=== PATIENT | male | born 1945 | race Caucasian/White ===

== ENCOUNTER 2016-11-20 15:14 | Inpatient (IN) | payer MEDICARE, MEDICAID ==
[~2016-11-20] VITALS: Ht 165.1 cm; Wt 139.8 kg
[2016-11-20] VITALS: BP 118/61
--- NOTE | ~2016-11-20 | CON ---
[place], [place] REPORT OF CONSULTATION NAME: [facility]ING [id number] UNIT #: [id number] ROOM: 501 DOCTOR: CULLEN PICKENS MD BIRTHDATE: [birth year] DOS: 11/21/2016 HISTORY OF PRESENT ILLNESS: This is a 70-year-old -[place] man whom I have been seeing in the office for the last many years. He has coronary artery disease and had coronary artery stents deployed by me in [facility]. He has significant mental disability and usually is accompanied by his caregiver. He had atrial fibrillation diagnosed in the earlier part of September when I placed him on Xarelto. He has never had heart failure, but has chronic lymphedema of the legs and it is quite severe. He has essential hypertension, mental retardation with stuttering and also has had chest pain previously and coronary artery disease as mentioned above. He does not drink nor does he smoke cigarettes. He lives in a jail, I believe. He was in Dr. office and had complained of acute chest pain. At that time, an ECG was done which showed atrial fibrillation and he was brought to the Emergency Department and admitted. He has no further chest pain, has not had any breathing difficulty, dizziness or loss of consciousness. He is not aware of his heart beating funny or irregularly. HOME MEDICATIONS: Include aspirin, carvedilol, clopidogrel, lisinopril, furosemide, multivitamin, simvastatin, potassium chloride and Xarelto 20 mg daily. PHYSICAL EXAMINATION: GENERAL: This is a patient who is alert, oriented, sitting in a chair. He is moderately obese. He is not tachypneic. Complexion is fine. There is no finger clubbing. No thyromegaly is present. VITAL SIGNS: Pulse is irregular at about 76 beats per minute, blood pressure 131/75. NECK: Normal JVP. No bruit in the neck. CARDIOVASCULAR: There is no cardiomegaly. Cardiac auscultation reveals irregular heart rate, but no murmurs or rub. EXTREMITIES: He has very large legs with edema that difficulty; this is very chronic. RESPIRATORY: Breath sounds are diminished with crackles in the lower one-third of the lung guthrie. DIAGNOSTIC STUDIES: Two ECGs have shown atrial fibrillation with controlled ventricular rate and almost left anterior hemiblock and right bundle branch block. Troponin I level was 0.015 and 0.019. IMPRESSION: 1. This patient has persistent atrial fibrillation with a controlled rate. He should continue on Xarelto and I will start him on propafenone 150 every 8 hours and see him in the office in a couple of weeks. If he remains in atrial fibrillation, then I will bring him here for electrical cardioversion to restore normal rhythm. 2. Chest pain, most likely noncardiac. It has resolved and he has ruled out [place], [place] REPORT OF CONSULTATION NAME: RICKEY LING UNIT #: [id number] ROOM: Formerly named [facility] DOCTOR: CULLEN PICKENS MD BIRTHDATE: [birth year] for an acute myocardial infarction. 3. Chronic severe edema of the lower extremities. He does not need any treatment other than current dose of furosemide. I thank you for this consult. CULLEN PICKENS MD CM:CONSTR:REPORT OF CONSULTATION 1229 11/21/16 2348 interface
[~2016-11-20 15:14] MED LIST: AMOXICILLIN500 M3 PO; ANAPROX DS550 MG PO; ASPIRIN LITE C325 MG PO; CLARITIN10 MG PO; COREG6.25 MG PO; K-TAB20 MEQ PO; LASIX40 MG PO; LASIX80 MG PO; LISINOPRIL5 MG PO; MEDROL DOSEPAK4 MG PO; MUCINEX ER600 MG PO; PLAVIX75 M1 PO; PREDNISONE10 MG PO; SIMVASTATIN20 MG PO; VITAMINS FOR HA1 CAP PO; ZITHROMAX Z PA250 MG PO
[2016-11-20 15:19] VITALS: BP 132/81
[2016-11-20 15:39] LABS: BASO % 0.3 % (0.0-1.0); EOS % 0.5 % (1.0-4.0); HEMATOCRIT 45.8 % (42.0-52.0); HEMOGLOBIN 14.9 g/dl (14.0-18.0); LYMPH # 0.8 10*3/uL (1.3-4.4); LYMPH % 8.5 % (27.0-41.0); MEAN CELL VOLUME 94.6 fl (80.0-94.0); MEAN CORPUSCULAR HGB 30.8 pg (27.0-31.0); MEAN CORPUSCULAR HGB CONC 32.5 g/dl (33.0-37.0); MEAN PLATELET VOLUME 10.7 fl (9.6-12.3); MONO # 0.8 10*3/uL (0.1-1.0); MONO % 9.1 % (3.0-9.0); NEUT # 7.2 10*3/uL (2.3-7.9); NEUT % 81.5 % (47.0-73.0); PLATELET COUNT AUTOMATED 128 10*3/uL (130-400); RED BLOOD COUNT 4.84 10*6/uL (4.50-5.90); RED CELL DISTRI WIDTH 13.9 % (0-14.5); WHITE BLOOD COUNT 8.8 10*3/uL (4.8-10.8)
[2016-11-20 15:48] LABS: ACT PARTIAL THROMBO TIME 36.8 SECONDS (20.8-31.5); INTERNATIONAL NORM RATIO 1.4 (2.0-3.5)
[2016-11-20 15:56] LABS: ALBUMIN 3.2 gm/dl (3.1-4.5); ALKALINE PHOSPHATASE 92 U/L (45-117); BUN 21 mg/dl (7-24); CHLORIDE 101 mmol/L (98-107); CREATININE 1.09 mg/dL (0.70-1.30); MAGNESIUM 2.1 mg/dL (1.5-2.1); POTASSIUM 4.2 mmol/L (3.5-5.1); SGOT/AST 26 IU/L (3-35); SGPT/ALT 22 U/L (12-78); SODIUM 136 mmol/L (136-145); TOTAL PROTEIN 8.1 gm/dL (6.4-8.2)
[2016-11-20 15:59] LABS: TROPONIN I < 0.015 ng/ml (<0.045)
--- NOTE | 2016-11-20 18:08 | NUR ---
A 70, admitted to , under the services of ASHLEY Wilks DO with a diagnosis of CHEST PAIN. Chief complaint is CHEST PAIN. Patient arrived via bed from ER. Monitor applied. Initial assessment completed. Vital signs taken and recorded. ASHLEY WILKS DO notified of admission to the unit. Orders received. See assessment for past medical history, medications and allergies. Patient and/or family oriented to unit. [facility] reviewed. Clothing/patient valuable form completed. VERÓNICA RASCON
[2016-11-20 18:29] VITALS: BP 126/55
[2016-11-20] MEDS ORDERED: XARELTO20 M1 PO (18:29)
--- NOTE | 2016-11-20 18:51 | NUR ---
NOTIFIED OF CONSULT
--- NOTE | 2016-11-20 20:30 | NUR ---
PATIENT RESTING IN BED. C/O OCCASIONAL L SIDE PAIN WHICH HE DID NOT WANT MEDICATED FOR. FLU VACCINE GIVEN. PATIENT RECEIVED [employer] PACKET, STATES HE CAN NOT READ SO I WENT OVER IT WITH HIM. HE AMBULATES W/ STEADY GAIT. CALL LIGHT IS IN REACH. WILL MONITOR.
[2016-11-20 20:37] VITALS: BP 121/60
--- NOTE | 2016-11-21 02:37 | NUR ---
SLEEPING. RESPIRATIONS EASY/REG. NO SXS OF DISTRESS. CALL LIGHT IS IN REACH. WILL MONITOR.
[2016-11-21 06:38] LABS: BASO % 0.2 % (0.0-1.0); EOS % 0.3 % (1.0-4.0); HEMATOCRIT 40.2 % (42.0-52.0); HEMOGLOBIN 13.3 g/dl (14.0-18.0); LYMPH # 0.9 10*3/uL (1.3-4.4); LYMPH % 8.8 % (27.0-41.0); MEAN CELL VOLUME 93.9 fl (80.0-94.0); MEAN CORPUSCULAR HGB 31.1 pg (27.0-31.0); MEAN CORPUSCULAR HGB CONC 33.1 g/dl (33.0-37.0); MEAN PLATELET VOLUME 10.9 fl (9.6-12.3); MONO # 1.3 10*3/uL (0.1-1.0); MONO % 12.8 % (3.0-9.0); NEUT # 7.7 10*3/uL (2.3-7.9); NEUT % 77.5 % (47.0-73.0); PLATELET COUNT AUTOMATED 124 10*3/uL (130-400); RED BLOOD COUNT 4.28 10*6/uL (4.50-5.90); WHITE BLOOD COUNT 9.9 10*3/uL (4.8-10.8)
[2016-11-21 06:39] LABS: ALBUMIN 2.6 gm/dl (3.1-4.5); ALKALINE PHOSPHATASE 75 U/L (45-117); BUN 16 mg/dl (7-24); CHLORIDE 103 mmol/L (98-107); CHOLESTEROL 99 mg/dL (<200); CREATININE 0.86 mg/dL (0.70-1.30); FREE T4 1.39 ng/dl (0.76-1.46); HDL CHOLESTEROL 51 mg/dl (40-60); LDL CHOLESTEROL 42 mg/dL (9-159); MAGNESIUM 2.2 mg/dL (1.5-2.1); PHOSPHOROUS 2.2 mg/dL (2.5-4.9); POTASSIUM 3.9 mmol/L (3.5-5.1); SGOT/AST 17 IU/L (3-35); SGPT/ALT 18 U/L (12-78); SODIUM 137 mmol/L (136-145); TRIGLYCERIDES 30 mg/dl (<150); VLDL CHOLESTEROL 6 mg/dL (6-40)
[2016-11-21 06:44] LABS: THYROID STIM HORMONE (HS) 0.512 uIU/ml (0.358-4.75)
[2016-11-21 07:00] LABS: ACT PARTIAL THROMBO TIME 39.2 SECONDS (20.8-31.5); INTERNATIONAL NORM RATIO 1.4 (2.0-3.5)
--- NOTE | 2016-11-21 07:30 | NUR ---
Shift chart check completed.
[2016-11-21 08:00] VITALS: BP 113/71; BP 118/80
[2016-11-21 08:23] LABS: VITAMIN D, 25-HYDROXY 22.3 ng/mL (30-100)
--- NOTE | 2016-11-21 09:00 | NUR ---
case management visits with patient, patient states he lives at home alone, patient states his caregiver will be here soon for case management to talk with her
[2016-11-21 12:00] VITALS: BP 131/75
[2016-11-21] MEDS ORDERED: PROPAFENONE HC150 MG PO (14:03)
--- NOTE | 2016-11-21 14:36 | NUR ---
REMOVED IV WITH CATHETER INTACT. BLEEDING CONTROLLED. REMOVED MONITOR. WILL AWAIT HIS LODGING HOUSE KEEPER TO GO OVER D/C ORDERS
--- NOTE | 2016-11-21 14:53 | NUR ---
WENT OVER D/C INSTRUCTIONS WITH PAPERHANGER ASSISTANT REVA NAGEL. PATIENT TAKEN TO EXIT VIA WHEELCHAIR. PATIENT IS D/C HOME
== END 2016-11-21 14:53 | disposition home or self-care (01) | DRG 308 ==
LOC: ED 15:14 → 5E 17:18 → EDHOLD 17:18 → 5E 17:26
PROVIDERS: Emergency Medicine; Internal Medicine; ADMIT Internal Medicine
DX: I48.1 Persistent atrial fibrillation (principal); E43 Unspecified severe protein-calorie malnutrition; D69.6 Thrombocytopenia, unspecified; J44.9 Chronic obstructive pulmonary disease, unspecified; Z68.43 Body mass index [BMI] 50.0-59.9, adult; I45.10 Unspecified right bundle-branch block; I25.10 Atherosclerotic heart disease of native coronary artery without angina pectoris; I48.92 Unspecified atrial flutter; R07.89 Other chest pain; I89.0 Lymphedema, not elsewhere classified; F17.210 Nicotine dependence, cigarettes, uncomplicated; F79 Unspecified intellectual disabilities; I10 Essential (primary) hypertension; R73.9 Hyperglycemia, unspecified; E78.5 Hyperlipidemia, unspecified; H91.90 Unspecified hearing loss, unspecified ear; Z82.49 Family history of ischemic heart disease and other diseases of the circulatory system; Z79.899 Other long term (current) drug therapy; Z95.5 Presence of coronary angioplasty implant and graft

== ENCOUNTER → 2018-01-17 | Outpatient (CLI) | payer MEDICARE, MEDICAID ==
[~2018-01-17] MED LIST changes: +PROPAFENONE HC150 MG PO; +XARELTO20 M1 PO
== END | disposition home or self-care (01) ==
LOC: CT 10:44
DX: K57.30 Diverticulosis of large intestine without perforation or abscess without bleeding (principal)

== ENCOUNTER → 2018-04-03 | Outpatient (CLI) | payer MEDICARE, MEDICAID ==
[~2018-04-03] MED LIST changes: +AMMONIUM LACTA385 GM T; +PROPAFENONE HY150 MG PO
== END | disposition home or self-care (01) ==
LOC: CARD 03-06 00:07
DX: I34.0 Nonrheumatic mitral (valve) insufficiency (principal); I25.10 Atherosclerotic heart disease of native coronary artery without angina pectoris; I50.9 Heart failure, unspecified

== ENCOUNTER → 2018-04-05 | Outpatient (CLI) | payer MEDICARE, MEDICAID ==
[2018-04-05 10:06] LABS: BASO % 0.5 % (0.0-1.0); EOS # 0.1 10*3/uL (0.0-0.4); EOS % 1.6 % (1.0-4.0); HEMATOCRIT 45.8 % (42.0-52.0); HEMOGLOBIN 14.2 g/dl (14.0-18.0); LYMPH # 0.8 10*3/uL (1.3-4.4); LYMPH % 17.8 % (27.0-41.0); MEAN CELL VOLUME 99.6 fl (80.0-94.0); MEAN CORPUSCULAR HGB 30.9 pg (27.0-31.0); MEAN PLATELET VOLUME 10.6 fl (9.6-12.3); MONO # 0.5 10*3/uL (0.1-1.0); NEUT % 67.9 % (47.0-73.0); PLATELET COUNT AUTOMATED 132 10*3/uL (130-400); RED CELL DISTRI WIDTH 13.2 % (0-14.5); WHITE BLOOD COUNT 4.4 10*3/uL (4.8-10.8)
[2018-04-05 10:08] LABS: BILIRUBIN NEGATIVE (NEGATIVE); BLOOD NEGATIVE (NEGATIVE); CLARITY SL CLOUDY (CLEAR); COLOR YELLOW (YELLOW); GLUCOSE NEGATIVE (NEGATIVE); KETONE NEGATIVE (NEGATIVE); LEUKO ESTERASE NEGATIVE (NEGATIVE); NITRITE NEGATIVE (NEGATIVE); PH 6.5 (5.0-9.0); SPECIFIC GRAVITY <= 1.005 (1.005-1.030); UROBILINOGEN 0.2 E.U./dl (0.2-1.0)
[2018-04-05 10:16] LABS: URINE CREATININE RANDOM < 13.00 mg/dL
[2018-04-05 10:27] LABS: ALBUMIN 3.2 gm/dl (3.1-4.5); BUN 22 mg/dl (7-24); CHLORIDE 102 mmol/L (98-107); CREATININE 1.25 mg/dL (0.70-1.30); PHOSPHOROUS 3.3 mg/dL (2.5-4.9); POTASSIUM 4.3 mmol/L (3.5-5.1); SODIUM 137 mmol/L (136-145)
== END | disposition home or self-care (01) ==
LOC: LAB 09:30
PROVIDERS: Internal Medicine Nephrology
DX: N17.9 Acute kidney failure, unspecified (principal); Z79.899 Other long term (current) drug therapy

== ENCOUNTER → 2018-05-14 | Outpatient (CLI) | payer MEDICARE, MEDICAID ==
--- NOTE | ~2018-05-14 | ST ---
[place], [place] EXERCISE STRESS TEST REPORT NAME: RICKEY LING UNIT #: [id number] ROOM: DOCTOR: KEZIA AUGUSTE MD BIRTHDATE: [birth year] DOS: LEXISCAN PORTION OF THE LEXISCAN CARDIOLITE Baseline cardiogram atrial fibrillation with a controlled ventricular response with Lexiscan, no new EKG changes with atrial fibrillation. Did have some shortness of breath. No chest discomfort. Blood pressure and heart rate responses normal. FINAL IMPRESSION: Indeterminate test secondary to the underlying atrial fibrillation. No chest pain. Positive shortness of breath. Nuclear images will be reported separately. KEZIA AUGUSTE MD CM:STRESS:EXERCISE STRESS TEST REPORT [id number] KEZIA AUGUSTE MD
--- NOTE | 2018-05-14 07:00 | NUR ---
INFORMED CONSENT OBTAINED FOR LEXISCAN NUCLEAR STRESS TEST WITH DR. AUGUSTE. RESTING EKG ATRIAL FIB RBBB WITH A RESTING HR OF 68 WITH BP OF 110/74. LUNGS CLEAR WITH SPO2 OF 95% ON ROOM AIR. PT COMPLETED A 1:00 LEXISCAN PROTOCOL RECEIVING LEXISCAN 0.4 MG IV OVER 10 SECONDS. HAD NO CHEST PAIN OR ANY EKG CHANGES. HAD A PEAK HR OF 102 WITH BP OF 98/70. LAST RECOVERY HR OF 89 WITH BP OF 100/76. AWAITING SCANNING IN STABLE CONDITION.
== END | disposition home or self-care (01) ==
LOC: CARD 05:22
DX: I25.5 Ischemic cardiomyopathy (principal)

== ENCOUNTER → 2019-03-03 | Outpatient (CLI) | payer MEDICARE, MEDICAID ==
[2019-03-03 18:38] LABS: BASO % 0.7 % (0.0-1.0); EOS # 0.1 10*3/uL (0.0-0.4); EOS % 2.1 % (1.0-4.0); HEMATOCRIT 46.1 % (42.0-52.0); HEMOGLOBIN 14.6 g/dl (14.0-18.0); LYMPH # 1.2 10*3/uL (1.3-4.4); MEAN CELL VOLUME 99.1 fl (80.0-94.0); MEAN CORPUSCULAR HGB 31.4 pg (27.0-31.0); MEAN CORPUSCULAR HGB CONC 31.7 g/dl (33.0-37.0); MONO # 0.5 10*3/uL (0.1-1.0); NEUT # 3.5 10*3/uL (2.3-7.9); PLATELET COUNT AUTOMATED 149 10*3/uL (130-400); RED BLOOD COUNT 4.65 10*6/uL (4.50-5.90); RED CELL DISTRI WIDTH 13.2 % (0-14.5); WHITE BLOOD COUNT 5.4 10*3/uL (4.8-10.8)
[2019-03-03 18:53] LABS: URINE CREATININE RANDOM 68.3 mg/dL
[2019-03-03 18:57] LABS: BILIRUBIN NEGATIVE (NEGATIVE); BLOOD NEGATIVE (NEGATIVE); CLARITY CLEAR (CLEAR); COLOR YELLOW (YELLOW); GLUCOSE NEGATIVE (NEGATIVE); KETONE NEGATIVE (NEGATIVE); LEUKO ESTERASE NEGATIVE (NEGATIVE); NITRITE NEGATIVE (NEGATIVE); PH 6.5 (5.0-9.0); SPECIFIC GRAVITY 1.015 (1.005-1.030)
[2019-03-03 18:58] LABS: ALBUMIN 3.5 gm/dl (3.1-4.5); BUN 23 mg/dl (7-24); CHLORIDE 102 mmol/L (98-107); CREATININE 1.27 mg/dL (0.70-1.30); PHOSPHOROUS 3.5 mg/dL (2.5-4.9); SODIUM 136 mmol/L (136-145)
[2019-03-03 19:03] LABS: ALBUMIN 3.4 gm/dl (3.1-4.5); BUN 24 mg/dl (7-24); CHLORIDE 101 mmol/L (98-107); CREATININE 1.28 mg/dL (0.70-1.30); POTASSIUM 4.2 mmol/L (3.5-5.1); SGOT/AST 40 IU/L (3-35); SGPT/ALT 30 U/L (12-78); SODIUM 135 mmol/L (136-145); TOTAL PROTEIN 7.9 gm/dL (6.4-8.2)
[2019-03-03 19:04] LABS: ALKALINE PHOSPHATASE 95 U/L (45-117)
[2019-03-03 19:17] LABS: BACTERIA TRACE; WBC 0-2 wbc/hpf (0-5)
== END | disposition home or self-care (01) ==
LOC: LAB 16:41 → US 17:00
PROVIDERS: Internal Medicine Nephrology; Urology
DX: N28.89 Other specified disorders of kidney and ureter (principal); D40.0 Neoplasm of uncertain behavior of prostate; N25.81 Secondary hyperparathyroidism of renal origin; R31.9 Hematuria, unspecified

== ENCOUNTER 2019-06-30 12:06 | Inpatient (IN) | payer MEDICARE, MEDICAID ==
[~2019-06-30] VITALS: Ht 172.7 cm; Wt 134.0 kg
[2019-06-30 12:11] VITALS: BP 126/81
--- NOTE | 2019-06-30 14:22 | NUR ---
PT IS RESTING IN BED. HE HAS BEEN PROMPTED MANY TIME THAT HE NEED TO PROVIDE URINE SAMPLE. PT UNABLE AT THIS TIME.
[2019-06-30 14:46] LABS: BASO # 0.1 10*3/uL (0.0-0.1); BASO % 0.6 % (0.0-1.0); EOS # 0.2 10*3/uL (0.0-0.4); EOS % 1.8 % (1.0-4.0); HEMATOCRIT 40.5 % (42.0-52.0); LYMPH # 1.2 10*3/uL (1.3-4.4); LYMPH % 14.4 % (27.0-41.0); MEAN CELL VOLUME 96.2 fl (80.0-94.0); MEAN CORPUSCULAR HGB 31.4 pg (27.0-31.0); MEAN CORPUSCULAR HGB CONC 32.6 g/dl (33.0-37.0); MEAN PLATELET VOLUME 12.3 fl (9.6-12.3); MONO # 0.9 10*3/uL (0.1-1.0); MONO % 10.6 % (3.0-9.0); NEUT # 5.9 10*3/uL (2.3-7.9); NEUT % 72.2 % (47.0-73.0); PLATELET COUNT AUTOMATED 233 10*3/uL (130-400); RED BLOOD COUNT 4.21 10*6/uL (4.50-5.90); RED CELL DISTRI WIDTH 13.6 % (0-14.5); WHITE BLOOD COUNT 8.2 10*3/uL (4.8-10.8)
[2019-06-30 14:56] LABS: ACT PARTIAL THROMBO TIME 41.7 SECONDS (20.0-32.1); INTERNATIONAL NORM RATIO 1.4 (2.0-3.5)
[2019-06-30 15:01] LABS: ALBUMIN 2.5 gm/dl (3.1-4.5); ALKALINE PHOSPHATASE 92 U/L (45-117); BUN 21 mg/dl (7-24); CHLORIDE 106 mmol/L (98-107); CREATININE 1.05 mg/dL (0.70-1.30); POTASSIUM 3.8 mmol/L (3.5-5.1); SGOT/AST 33 IU/L (3-35); SGPT/ALT 43 U/L (12-78); SODIUM 138 mmol/L (136-145); TOTAL PROTEIN 7.2 gm/dL (6.4-8.2)
[2019-06-30 15:28] LABS: BACTERIA TRACE; BILIRUBIN NEGATIVE (NEGATIVE); BLOOD NEGATIVE (NEGATIVE); CLARITY CLEAR (CLEAR); COLOR YELLOW (YELLOW); GLUCOSE NEGATIVE (NEGATIVE); KETONE NEGATIVE (NEGATIVE); LEUKO ESTERASE NEGATIVE (NEGATIVE); NITRITE NEGATIVE (NEGATIVE); UROBILINOGEN 0.2 E.U./dl (0.2-1.0)
[2019-06-30 15:29] LABS: HYALINE CAST 21-30
[2019-06-30 16:00] VITALS: BP 108/46
--- NOTE | 2019-06-30 17:33 | NUR ---
PENDING BED FOR PATIENT.
[2019-06-30 18:41] VITALS: BP 113/56
--- NOTE | 2019-06-30 19:30 | NUR ---
PT RESTING IN BED. IN NO ACUTE DISTRESS AT THIS TIME.
[2019-06-30 19:53] VITALS: BP 135/77
--- NOTE | 2019-06-30 19:53 | NUR ---
Time: 1952 A 73 year old MALE admitted to under services of BELLA AGUILAR DO. Pt. arrived via bed from ER. Chief complaint: CELLULITIS. CONCHA HALLMAN
[2019-06-30] MEDS ORDERED: CEFDINIR300 MG PO (20:32)
[2019-06-30] MEDS ORDERED: Nizoral 2%15 GM T (20:35)
--- NOTE | 2019-06-30 20:40 | NUR ---
MED REC UPDATED PER MED CLAIM HISTORY .
--- NOTE | 2019-06-30 20:58 | NUR ---
INFORMED THAT HOME MEDS COMPLETED PER CLAIM HISTORY AND PATIENT HAS COCCYX WOUND. STATED HE WILL PLACE ORDERS.
[2019-07-01] VITALS: BP 120/50
--- NOTE | 2019-07-01 04:40 | NUR ---
RICKEY LING [id number] Please refer to the physician's history and physical for past medical history, comorbid conditions, and allergies. Diagnosis: CELLULITIS Lucas Score: 18,LOW OR NO RISK WOUND DESCRIPTIONS: Wound Number: 1 Location of the wound: Right lower extremities red in color and warm to tought. No pain at time of assessment. No open areas noted at time of assessment. No drainage noted at time of assessment. Wound Number: 2 Location of the wound: coccyx Type of wound: stage 2 Thickness: Partial Size: 1.0cm x 0.5cm x 0.3cm Tunneling: none Undermining: none Sinus Tract: none Presence of Exudate: Serosanguineous Amount: Light Color: Red Odor: None Periwound Skin Appearance: Normal Wound edges: approximated Pain (associated with wound): none at time of assessment How does patient state this happened? tender at time of assessment Surface the patient is resting on: Proform SKIN PREVENTION RECOMMENDATION: 1. Pressure redistribution support surface as appropriate 2. Elevate heels 3. Remove boots/TEDS every shift and reapply 4. Head of bed 30 degrees as tolerated 5. Assess nutrition and hydration 6. Manage moisture 7. Avoid the use of containment devices while in bed 8. Use absorptive products on surfaces limit layers of linens on bed 9. Turn and reposition every 1-2 hours in bed and every 1 hour in chair as tolerated 10. Weight shifts every 15 minutes while up in chair 11. Offloading with pillows or device to keep heels elevated off bed 12. Monitor skin at least every shift 13. Inspect under medical devices twice a day WOUND TREATMENT RECOMMENDATIONS: Podiatry is already on consult at this time. Clarify Stage 2 guidelines: Cleanse coccyx with nss and apply sureprep around the wound therahoney to wound bed and cover with optifoam gentle every 2 days and prn for soiling Wheelchair cushion when oob. Heel raiser pro boot to bilateral feet while in bed.
--- NOTE | 2019-07-01 05:55 | NUR ---
FUND DEVELOPMENT MANAGER ANALYSIS LEAD NOTIFIED OF CONSULT FOR PATIENT FOR RIGHT LEG CELLULITIS AND LYMPHEDEMA. SAID HE WILL BE HERE BY 9AM.
[2019-07-01 06:14] LABS: CHLORIDE 106 mmol/L (98-107); POTASSIUM 3.9 mmol/L (3.5-5.1); SODIUM 139 mmol/L (136-145)
[2019-07-01 06:22] LABS: BASO % 0.6 % (0.0-1.0); EOS # 0.2 10*3/uL (0.0-0.4); EOS % 3.3 % (1.0-4.0); HEMATOCRIT 38.9 % (42.0-52.0); LYMPH # 0.9 10*3/uL (1.3-4.4); LYMPH % 17.7 % (27.0-41.0); MEAN CELL VOLUME 97.7 fl (80.0-94.0); MEAN CORPUSCULAR HGB 30.7 pg (27.0-31.0); MEAN CORPUSCULAR HGB CONC 31.4 g/dl (33.0-37.0); MEAN PLATELET VOLUME 10.5 fl (9.6-12.3); MONO # 0.6 10*3/uL (0.1-1.0); NEUT # 3.2 10*3/uL (2.3-7.9); RED BLOOD COUNT 3.98 10*6/uL (4.50-5.90); RED CELL DISTRI WIDTH 13.2 % (0-14.5); WHITE BLOOD COUNT 4.9 10*3/uL (4.8-10.8)
[2019-07-01 06:26] LABS: BUN 18 mg/dl (7-24); CREATININE 0.93 mg/dL (0.70-1.30); PLATELET COUNT AUTOMATED 151 10*3/uL (130-400)
[2019-07-01 08:00] VITALS: BP 107/67
--- NOTE | 2019-07-01 10:04 | NUR ---
Dr. Villa notified of wound care recommendations.
[2019-07-01 12:00] VITALS: BP 117/64
--- NOTE | 2019-07-01 12:28 | NUR ---
House Furnishings Supervisor in to talk to patient. Patient states lives at HOME with CAREGIVER AND ROOM MATE. There are 10 [address] in the home. Physician: HUMZA Pharmacy: [facility] Home health services: NONE Patient's level of ADLs: INDEPENDENT Patient has working utilities: YES DME: NONE Follow-up physician's appointment after d/c: WILL BE MADE BY HOSPITALIST NURSE DIRECTOR Does patient want to access PORTAL?: NO Discharge plan PT LIVES AT HOME WITH ROOM MATE AND CAREGIVER. DENIES ANY NEEDS ON DISCHARGE. TALKED TO PT ABOUT HOME HEALTH OR SNF AND HE STATES TO CALL HIS CAREGIVER AND TALK TO HER. WILL CONTINUE TO FOLLOW. STATES HE WILL HAVE A RIDE HOME.. AJ FREEMAN
--- NOTE | 2019-07-01 13:03 | NUR ---
PHYSICAL THERAPY Randa received chart reviewed attempted to see pt at the bedside however out of room for arterial studies of BLE. Will follow at a later date. Melinda Celeste PT
--- NOTE | 2019-07-01 14:08 | NUR ---
Physical Therapy evaluation completed on fourth floor with full evaluation to follow. Recommend physical therapy per plan of care and SNF pending progress with further ambulation upon discharge. Currently pt with limited transfers and amb due to RLE pain. Thank you for this referral. Melinda Celeste PT
--- NOTE | 2019-07-01 15:34 | NUR ---
SPOKE WITH FRATERN[employer] HOUSE COOK REVA AND SHE STATES THEY WILL NOT HAVE ANY NEEDS ON DISCHARGE. STATES PT WILL RETURN HOME WHEN MEDICALLY STABLE.
[2019-07-01 16:00] VITALS: BP 102/52
[2019-07-01 20:00] VITALS: BP 123/67
[2019-07-02] VITALS: BP 141/89
[2019-07-02 08:00] VITALS: BP 145/92
[2019-07-02] MEDS ORDERED: VITAMIN D350 MC2 PO (09:51)
[2019-07-02] MEDS ORDERED: DOXYCYCLINE100 M3 PO (09:51)
--- NOTE | 2019-07-02 10:58 | NUR ---
NUNU CASTILLO REVIEWED AND COPY MADE FOR PATIENT TO GIVE TO HIS CAREGIVER, REVA. REVA TO TRANSPORT IN ABOUT AN HOUR. HEPLOCK REMOVED. WOUND CARE PHOTOS TAKEN.
--- NOTE | 2019-07-02 11:04 | NUR ---
DR. MARCOS INFORMED THAT DR. GONZALES WANTS THE PATIENT'S LEGS WRAPPED BEFORE HE GOES HOME.
--- NOTE | 2019-07-02 11:26 | NUR ---
PT BEING DISCHARGED TODAY. PER PT AND CAREGIVER NO NEEDS AT HOME.
--- NOTE | 2019-07-02 12:27 | NUR ---
PT WHEELED OFF THE FLOOR VIA WHEELCHAIR TO PRIVATE CAR AT THIS TIME.
== END 2019-07-02 12:27 | disposition home or self-care (01) | DRG 602 ==
LOC: ED 12:06 → 4E 16:37 → EDHOLD 16:37 → 4E 19:25
PROVIDERS: Nurse Practitioner Family; Student in an Organized Health Care Education/Training Program; ADMIT Family Medicine
DX: L03.115 Cellulitis of right lower limb (principal); E43 Unspecified severe protein-calorie malnutrition; I50.22 Chronic systolic (congestive) heart failure; Z68.41 Body mass index [BMI] 40.0-44.9, adult; D53.9 Nutritional anemia, unspecified; F80.81 Childhood onset fluency disorder; F79 Unspecified intellectual disabilities; E78.00 Pure hypercholesterolemia, unspecified; I73.9 Peripheral vascular disease, unspecified; I25.10 Atherosclerotic heart disease of native coronary artery without angina pectoris; H91.13 Presbycusis, bilateral; I11.0 Hypertensive heart disease with heart failure; I48.91 Unspecified atrial fibrillation; I89.0 Lymphedema, not elsewhere classified; Z79.899 Other long term (current) drug therapy; Z95.5 Presence of coronary angioplasty implant and graft; Z87.891 Personal history of nicotine dependence; Z82.49 Family history of ischemic heart disease and other diseases of the circulatory system

== ENCOUNTER → 2021-07-01 | Outpatient (CLI) | payer MEDICARE, MEDICAID ==
[~2021-07-01] MED LIST changes: +CEFDINIR300 MG PO; +DOXYCYCLINE100 M3 PO; +Nizoral 2%15 GM T; +VITAMIN D350 MC2 PO
[2021-07-01 17:12] LABS: BASO % 0.3 % (0.0-1.0); EOS # 0.2 10*3/uL (0.0-0.4); EOS % 3.4 % (1.0-4.0); HEMATOCRIT 42.2 % (42.0-52.0); LYMPH # 1.5 10*3/uL (1.3-4.4); LYMPH % 25.9 % (27.0-41.0); MEAN CELL VOLUME 96.3 fl (80.0-94.0); MEAN CORPUSCULAR HGB 30.4 pg (27.0-31.0); MEAN CORPUSCULAR HGB CONC 31.5 g/dl (33.0-37.0); MEAN PLATELET VOLUME 10.9 fl (9.6-12.3); MONO # 0.9 10*3/uL (0.1-1.0); NEUT # 3.1 10*3/uL (2.3-7.9); NEUT % 54.1 % (47.0-73.0); PLATELET COUNT AUTOMATED 162 10*3/uL (130-400); RED BLOOD COUNT 4.38 10*6/uL (4.50-5.90); RED CELL DISTRI WIDTH 14.2 % (0-14.5); WHITE BLOOD COUNT 5.8 10*3/uL (4.8-10.8)
[2021-07-01 17:26] LABS: BILIRUBIN Negative (Negative); BLOOD Negative (Negative); CLARITY Cloudy (Clear); COLOR Yellow (Yellow); GLUCOSE Negative (Negative); KETONE Negative (Negative); LEUKO ESTERASE Trace (Negative); NITRITE Negative (Negative); PH 6.5 (4.5-8.0); SPECIFIC GRAVITY 1.015 (1.001-1.030)
[2021-07-01 17:50] LABS: EPITHELIAL CELLS 51-100
[2021-07-01 17:51] LABS: BACTERIA 1+; HYALINE CAST 0-2
[2021-07-01 18:06] LABS: CREATININE 1.48 mg/dL (0.70-1.30); POTASSIUM 4.1 mmol/L (3.5-5.1)
[2021-07-01 18:12] LABS: FERRITIN 52.3 ng/mL (22.0-322.0); VITAMIN D, 25-HYDROXY 50.4 ng/mL (30-100)
[2021-07-01 18:13] LABS: THYROID STIM HORMONE (HS) 2.69 uIU/ml (0.358-4.75)
== END | disposition home or self-care (01) ==
LOC: LAB 16:32
PROVIDERS: ATTEND Family Medicine
DX: R53.83 Other fatigue (principal); E78.5 Hyperlipidemia, unspecified; R79.89 Other specified abnormal findings of blood chemistry; E55.9 Vitamin D deficiency, unspecified; R74.8 Abnormal levels of other serum enzymes

== ENCOUNTER → 2022-02-08 | Outpatient (CLI) | payer MEDICARE, MEDICAID ==
[2022-02-08 17:26] LABS: BASO % 0.2 % (0.0-1.0); EOS # 0.1 10*3/uL (0.0-0.4); EOS % 1.9 % (1.0-4.0); HEMATOCRIT 43.3 % (42.0-52.0); LYMPH # 1.3 10*3/uL (1.3-4.4); LYMPH % 23.8 % (27.0-41.0); MEAN CELL VOLUME 98.6 fl (80.0-94.0); MEAN CORPUSCULAR HGB 30.8 pg (27.0-31.0); MEAN CORPUSCULAR HGB CONC 31.2 g/dl (33.0-37.0); MEAN PLATELET VOLUME 11.1 fl (9.6-12.3); MONO # 0.7 10*3/uL (0.1-1.0); MONO % 12.3 % (3.0-9.0); NEUT # 3.3 10*3/uL (2.3-7.9); NEUT % 61.4 % (47.0-73.0); PLATELET COUNT AUTOMATED 109 10*3/uL (130-400); RED BLOOD COUNT 4.39 10*6/uL (4.50-5.90); RED CELL DISTRI WIDTH 15.1 % (0-14.5); RETICULOCYTE % 1.64 % (0.50-2.50); WHITE BLOOD COUNT 5.4 10*3/uL (4.8-10.8)
[2022-02-08 17:32] LABS: BILIRUBIN Negative (Negative); BLOOD Negative (Negative); CLARITY Clear (Clear); COLOR Yellow (Yellow); GLUCOSE Negative (Negative); KETONE Negative (Negative); LEUKO ESTERASE Negative (Negative); NITRITE Negative (Negative); PH 6.5 (4.5-8.0); SPECIFIC GRAVITY 1.015 (1.001-1.030)
[2022-02-08 17:47] LABS: ALKALINE PHOSPHATASE 114 U/L (46-116); BUN 19 mg/dl (9-23); CHLORIDE 102 mmol/L (98-107); CHOLESTEROL 100 mg/dL (<200); GAMMA GLUTAMYL TRANSPEPTIDASE 78 U/L (0-73); LDL CHOLESTEROL 51 mg/dL (9-159); POTASSIUM 4.1 mmol/L (3.4-5.1); SGPT/ALT 18 U/L (10-49); SODIUM 138 mmol/L (136-145); THYROID STIM HORMONE (HS) 2.253 uIU/ml (0.550-4.780); TOTAL PROTEIN 7.7 gm/dL (6.0-8.0); TRIGLYCERIDES 57 mg/dl (<150)
[2022-02-08 17:52] LABS: BACTERIA TRACE
[2022-02-08 18:45] LABS: VITAMIN D, 25-HYDROXY 55.4 ng/mL (30-100)
== END | disposition home or self-care (01) ==
LOC: LAB 16:49
PROVIDERS: ATTEND Family Medicine
DX: Z12.5 Encounter for screening for malignant neoplasm of prostate (principal); E55.9 Vitamin D deficiency, unspecified; E78.5 Hyperlipidemia, unspecified; R79.89 Other specified abnormal findings of blood chemistry; R53.83 Other fatigue

== ENCOUNTER → 2022-04-11 | Outpatient (CLI) | payer MEDICARE, MEDICAID ==
[~2022-04-11] MED LIST changes: +CARVEDILOL3.125 MG PO; +ENTRESTO 24 MG1 EACH PO; +METOPROLOL SUCC25 M2 PO; +MONTELUKAST SOD10 MG PO; +SERTRALINE HYDR25 MG PO
[2022-04-11 13:04] LABS: BASO % 0.3 % (0.0-1.0); EOS # 0.1 10*3/uL (0.0-0.4); EOS % 1.5 % (1.0-4.0); HEMATOCRIT 42.6 % (42.0-52.0); LYMPH % 16.3 % (27.0-41.0); MEAN CELL VOLUME 97.3 fl (80.0-94.0); MEAN CORPUSCULAR HGB 30.1 pg (27.0-31.0); MEAN PLATELET VOLUME 10.5 fl (9.6-12.3); MONO # 0.8 10*3/uL (0.1-1.0); NEUT # 4.1 10*3/uL (2.3-7.9); NEUT % 68.7 % (47.0-73.0); PLATELET COUNT AUTOMATED 152 10*3/uL (130-400); RED BLOOD COUNT 4.38 10*6/uL (4.50-5.90); RED CELL DISTRI WIDTH 15.4 % (0-14.5); RETICULOCYTE % 1.76 % (0.50-2.50)
[2022-04-11 13:12] LABS: BILIRUBIN Negative (Negative); BLOOD Negative (Negative); CLARITY Clear (Clear); COLOR Yellow (Yellow); GLUCOSE Negative (Negative); KETONE Negative (Negative); LEUKO ESTERASE Negative (Negative); NITRITE Negative (Negative); PH 6.5 (4.5-8.0); SPECIFIC GRAVITY 1.015 (1.001-1.030)
[2022-04-11 13:24] LABS: ALKALINE PHOSPHATASE 109 U/L (46-116); BUN 18 mg/dl (9-23); CHLORIDE 102 mmol/L (98-107); CHOLESTEROL 119 mg/dL (<200); GAMMA GLUTAMYL TRANSPEPTIDASE 71 U/L (0-73); LDL CHOLESTEROL 67 mg/dL (9-159); SGPT/ALT 24 U/L (10-49); T3 UPTAKE 29.7 % (22.4-36.7); THYROXINE (T4) TOTAL 9.4 ug/dl (4.5-10.9); TOTAL PROTEIN 7.3 gm/dL (6.0-8.0); TRIGLYCERIDES 65 mg/dl (<150)
[2022-04-11 13:31] LABS: BACTERIA TRACE
[2022-04-11 14:22] LABS: VITAMIN D, 25-HYDROXY 46.5 ng/mL (30-100)
== END | disposition home or self-care (01) ==
LOC: LAB 12:23
PROVIDERS: ATTEND Family Medicine
DX: E55.9 Vitamin D deficiency, unspecified (principal); R79.89 Other specified abnormal findings of blood chemistry; R74.8 Abnormal levels of other serum enzymes; R53.83 Other fatigue

== ENCOUNTER 2022-04-15 14:11 | Inpatient (IN) | payer MEDICARE, MEDICAID ==
[~2022-04-15] VITALS: Ht 160 cm; Wt 148.9 kg
[2022-04-15] MEDS ORDERED: GOOD NEIGHBOR L10 MG PO (14:36)
[2022-04-15 14:37] VITALS: BP 133/62
[2022-04-15 15:13] LABS: BASO % 0.5 % (0.0-1.0); EOS # 0.1 10*3/uL (0.0-0.4); EOS % 1.4 % (1.0-4.0); HEMATOCRIT 44.6 % (42.0-52.0); LYMPH # 1.1 10*3/uL (1.3-4.4); LYMPH % 18.6 % (27.0-41.0); MEAN CELL VOLUME 98.2 fl (80.0-94.0); MEAN CORPUSCULAR HGB 31.3 pg (27.0-31.0); MEAN CORPUSCULAR HGB CONC 31.8 g/dl (33.0-37.0); MEAN PLATELET VOLUME 10.5 fl (9.6-12.3); MONO # 0.6 10*3/uL (0.1-1.0); MONO % 10.2 % (3.0-9.0); NEUT # 4.1 10*3/uL (2.3-7.9); NEUT % 69.1 % (47.0-73.0); PLATELET COUNT AUTOMATED 153 10*3/uL (130-400); RED BLOOD COUNT 4.54 10*6/uL (4.50-5.90); RED CELL DISTRI WIDTH 15.8 % (0-14.5); WHITE BLOOD COUNT 5.9 10*3/uL (4.8-10.8)
[2022-04-15 15:29] LABS: ALKALINE PHOSPHATASE 99 U/L (46-116); BUN 23 mg/dl (9-23); CHLORIDE 105 mmol/L (98-107); POTASSIUM 3.9 mmol/L (3.4-5.1); SGPT/ALT 20 U/L (10-49); TOTAL PROTEIN 7.7 gm/dL (6.0-8.0)
[2022-04-15 18:15] VITALS: BP 110/49
[2022-04-15 20:00] VITALS: BP 116/56
[2022-04-16] VITALS: BP 118/54
[2022-04-16 06:53] LABS: BASO % 0.6 % (0.0-1.0); EOS # 0.2 10*3/uL (0.0-0.4); EOS % 4.6 % (1.0-4.0); HEMATOCRIT 38.3 % (42.0-52.0); LYMPH % 19.4 % (27.0-41.0); MEAN CORPUSCULAR HGB 30.9 pg (27.0-31.0); MEAN CORPUSCULAR HGB CONC 31.9 g/dl (33.0-37.0); MEAN PLATELET VOLUME 11.1 fl (9.6-12.3); MONO # 0.6 10*3/uL (0.1-1.0); MONO % 12.8 % (3.0-9.0); NEUT # 3.1 10*3/uL (2.3-7.9); NEUT % 62.4 % (47.0-73.0); PLATELET COUNT AUTOMATED 146 10*3/uL (130-400); RED BLOOD COUNT 3.95 10*6/uL (4.50-5.90); RED CELL DISTRI WIDTH 15.6 % (0-14.5)
[2022-04-16 07:09] LABS: ALKALINE PHOSPHATASE 77 U/L (46-116); BUN 17 mg/dl (9-23); CHLORIDE 101 mmol/L (98-107); POTASSIUM 3.3 mmol/L (3.4-5.1); SGPT/ALT 12 U/L (10-49); TOTAL PROTEIN 6.3 gm/dL (6.0-8.0)
[2022-04-16 07:42] LABS: INTERNATIONAL NORM RATIO 1.4 (2.0-3.5)
[2022-04-16 08:00] VITALS: BP 96/38
[2022-04-16 12:00] VITALS: BP 117/73
[2022-04-16 16:00] VITALS: BP 110/63
[2022-04-16 20:00] VITALS: BP 107/73
[2022-04-17] VITALS: BP 100/58
[2022-04-17 04:20] LABS: BASO % 0.4 % (0.0-1.0); EOS # 0.2 10*3/uL (0.0-0.4); HEMATOCRIT 38.7 % (42.0-52.0); LYMPH # 1.2 10*3/uL (1.3-4.4); LYMPH % 23.9 % (27.0-41.0); MEAN CORPUSCULAR HGB 30.1 pg (27.0-31.0); MEAN CORPUSCULAR HGB CONC 30.7 g/dl (33.0-37.0); MEAN PLATELET VOLUME 10.4 fl (9.6-12.3); MONO # 0.6 10*3/uL (0.1-1.0); MONO % 12.9 % (3.0-9.0); NEUT # 2.8 10*3/uL (2.3-7.9); NEUT % 58.6 % (47.0-73.0); PLATELET COUNT AUTOMATED 143 10*3/uL (130-400); RED BLOOD COUNT 3.95 10*6/uL (4.50-5.90); RED CELL DISTRI WIDTH 15.6 % (0-14.5); WHITE BLOOD COUNT 4.8 10*3/uL (4.8-10.8)
[2022-04-17 04:38] LABS: BUN 20 mg/dl (9-23); CHLORIDE 101 mmol/L (98-107); POTASSIUM 3.8 mmol/L (3.4-5.1)
[2022-04-17 08:00] VITALS: BP 98/50
[2022-04-17 12:00] VITALS: BP 120/63
[2022-04-17 16:00] VITALS: BP 100/48
[2022-04-17 20:00] VITALS: BP 115/57
[2022-04-18] VITALS: BP 103/52
[2022-04-18 08:00] VITALS: BP 110/49
[2022-04-18 12:00] VITALS: BP 90/38
[2022-04-18 16:00] VITALS: BP 104/53
[2022-04-18 20:00] VITALS: BP 97/48
[2022-04-19] VITALS: BP 96/30
[2022-04-19 07:15] LABS: BASO % 0.6 % (0.0-1.0); EOS # 0.2 10*3/uL (0.0-0.4); EOS % 3.9 % (1.0-4.0); HEMATOCRIT 40.7 % (42.0-52.0); LYMPH # 1.3 10*3/uL (1.3-4.4); LYMPH % 25.2 % (27.0-41.0); MEAN CELL VOLUME 97.1 fl (80.0-94.0); MEAN CORPUSCULAR HGB CONC 31.9 g/dl (33.0-37.0); MEAN PLATELET VOLUME 10.6 fl (9.6-12.3); MONO # 0.7 10*3/uL (0.1-1.0); MONO % 14.2 % (3.0-9.0); NEUT # 2.8 10*3/uL (2.3-7.9); NEUT % 55.9 % (47.0-73.0); PLATELET COUNT AUTOMATED 168 10*3/uL (130-400); RED BLOOD COUNT 4.19 10*6/uL (4.50-5.90); RED CELL DISTRI WIDTH 15.4 % (0-14.5); WHITE BLOOD COUNT 5.1 10*3/uL (4.8-10.8)
[2022-04-19 07:28] LABS: BUN 15 mg/dl (9-23); CHLORIDE 100 mmol/L (98-107); POTASSIUM 4.2 mmol/L (3.4-5.1)
[2022-04-19 08:00] VITALS: BP 90/50
[2022-04-19 12:00] VITALS: BP 100/50
[2022-04-19 16:00] VITALS: BP 90/48
[2022-04-19 20:00] VITALS: BP 98/48
[2022-04-20] VITALS: BP 102/55
[2022-04-20 06:59] LABS: BASO % 0.6 % (0.0-1.0); EOS # 0.2 10*3/uL (0.0-0.4); EOS % 4.2 % (1.0-4.0); HEMATOCRIT 40.3 % (42.0-52.0); LYMPH # 1.3 10*3/uL (1.3-4.4); LYMPH % 23.9 % (27.0-41.0); MEAN CELL VOLUME 97.1 fl (80.0-94.0); MEAN CORPUSCULAR HGB 30.4 pg (27.0-31.0); MEAN CORPUSCULAR HGB CONC 31.3 g/dl (33.0-37.0); MEAN PLATELET VOLUME 10.8 fl (9.6-12.3); MONO # 0.8 10*3/uL (0.1-1.0); MONO % 14.4 % (3.0-9.0); NEUT % 56.5 % (47.0-73.0); PLATELET COUNT AUTOMATED 166 10*3/uL (130-400); RED BLOOD COUNT 4.15 10*6/uL (4.50-5.90); RED CELL DISTRI WIDTH 15.3 % (0-14.5); WHITE BLOOD COUNT 5.2 10*3/uL (4.8-10.8)
[2022-04-20 07:24] LABS: BUN 13 mg/dl (9-23); CHLORIDE 103 mmol/L (98-107); POTASSIUM 4.2 mmol/L (3.4-5.1)
[2022-04-20 08:00] VITALS: BP 104/50
[2022-04-20 12:00] VITALS: BP 132/76
[2022-04-20 16:00] VITALS: BP 125/64
[2022-04-20 20:00] VITALS: BP 84/33
[2022-04-21] VITALS: BP 129/42
[2022-04-21 07:04] LABS: BASO # 0.1 10*3/uL (0.0-0.1); BASO % 0.9 % (0.0-1.0); EOS # 0.2 10*3/uL (0.0-0.4); EOS % 3.7 % (1.0-4.0); HEMATOCRIT 44.7 % (42.0-52.0); LYMPH # 1.5 10*3/uL (1.3-4.4); LYMPH % 27.1 % (27.0-41.0); MEAN CELL VOLUME 96.5 fl (80.0-94.0); MEAN CORPUSCULAR HGB 30.5 pg (27.0-31.0); MEAN CORPUSCULAR HGB CONC 31.5 g/dl (33.0-37.0); MEAN PLATELET VOLUME 10.7 fl (9.6-12.3); MONO # 0.7 10*3/uL (0.1-1.0); MONO % 12.3 % (3.0-9.0); NEUT # 3.2 10*3/uL (2.3-7.9); NEUT % 55.6 % (47.0-73.0); PLATELET COUNT AUTOMATED 195 10*3/uL (130-400); RED BLOOD COUNT 4.63 10*6/uL (4.50-5.90); RED CELL DISTRI WIDTH 15.4 % (0-14.5); WHITE BLOOD COUNT 5.7 10*3/uL (4.8-10.8)
[2022-04-21 07:39] LABS: BUN 15 mg/dl (9-23); CHLORIDE 101 mmol/L (98-107); POTASSIUM 4.3 mmol/L (3.4-5.1)
[2022-04-21 08:00] VITALS: BP 143/76; BP 92/50
[2022-04-21 12:00] VITALS: BP 82/50
[2022-04-21] MEDS ORDERED: LASIX20 MG PO (14:18)
[2022-04-21] MEDS ORDERED: AMMONIUM LACTA227 GM T (14:18)
== END 2022-04-21 15:33 | DRG 291 ==
LOC: ED 14:11 → EDHOLD 15:51 → 5E 15:51
PROVIDERS: Family Medicine; Nurse Practitioner Family; Student in an Organized Health Care Education/Training Program; ADMIT Emergency Medicine; ATTEND Emergency Medicine
DX: I11.0 Hypertensive heart disease with heart failure (principal); I50.23 Acute on chronic systolic (congestive) heart failure; E44.0 Moderate protein-calorie malnutrition; Z68.44 Body mass index [BMI] 60.0-69.9, adult; I48.0 Paroxysmal atrial fibrillation; F79 Unspecified intellectual disabilities; I87.2 Venous insufficiency (chronic) (peripheral); R26.2 Difficulty in walking, not elsewhere classified; I25.10 Atherosclerotic heart disease of native coronary artery without angina pectoris; R73.9 Hyperglycemia, unspecified; F80.81 Childhood onset fluency disorder; Z95.5 Presence of coronary angioplasty implant and graft; Z87.891 Personal history of nicotine dependence; Z82.49 Family history of ischemic heart disease and other diseases of the circulatory system; Z79.899 Other long term (current) drug therapy

== ENCOUNTER → 2022-05-02 | Outpatient (CLI) | payer MEDICARE, MEDICAID ==
[~2022-05-02] MED LIST changes: +AMMONIUM LACTA227 GM T; +CYMBALTA60 MG PO; +GOOD NEIGHBOR L10 MG PO; +LASIX20 MG PO; +RIVASTIGMINE TAR3 M1 PO
== END | disposition home or self-care (01) ==
LOC: CARD 04-25 07:30
PROVIDERS: ATTEND Internal Medicine Cardiovascular Disease
DX: I25.5 Ischemic cardiomyopathy (principal); R93.1 Abnormal findings on diagnostic imaging of heart and coronary circulation

== ENCOUNTER 2023-08-28 20:29 | Emergency (ER) | payer MEDICARE, MEDICAID ==
[~2023-08-28] VITALS: Ht 182.8 cm; Wt 181.4 kg
[2023-08-28 20:44] LABS: BASO % 0.6 % (0.0-1.0); EOS # 0.2 10*3/uL (0.0-0.4); EOS % 2.4 % (1.0-4.0); HEMATOCRIT 42.4 % (42.0-52.0); LYMPH # 1.8 10*3/uL (1.3-4.4); LYMPH % 28.6 % (27.0-41.0); MEAN CELL VOLUME 102.2 fl (80.0-94.0); MEAN CORPUSCULAR HGB 32.8 pg (27.0-31.0); MEAN CORPUSCULAR HGB CONC 32.1 g/dl (33.0-37.0); MEAN PLATELET VOLUME 10.4 fl (9.6-12.3); MONO # 1.2 10*3/uL (0.1-1.0); MONO % 18.6 % (3.0-9.0); NEUT # 3.1 10*3/uL (2.3-7.9); NEUT % 49.6 % (47.0-73.0); PLATELET COUNT AUTOMATED 150 10*3/uL (130-400); RED BLOOD COUNT 4.15 10*6/uL (4.50-5.90); RED CELL DISTRI WIDTH 17.4 % (0-14.5); WHITE BLOOD COUNT 6.2 10*3/uL (4.8-10.8)
[2023-08-28 20:59] LABS: POTASSIUM 4.3 mmol/L (3.4-5.1)
[2023-08-28] MEDS ORDERED: Lidocaine Hydrochloride 10 ML SYR UR ONE (22:50)
[2023-08-28 23:18] LABS: BILIRUBIN Negative (Negative); BLOOD Trace-Intact (Negative); CLARITY Clear (Clear); COLOR Yellow (Yellow); GLUCOSE Negative (Negative); KETONE Negative (Negative); LEUKO ESTERASE Negative (Negative); NITRITE Negative (Negative)
[2023-08-28 23:34] LABS: WBC 0-2 wbc/hpf (0-5)
[2023-08-28 23:35] LABS: BACTERIA TRACE
[2023-08-29 00:12] VITALS: BP 123/67
== END 2023-08-29 00:20 ==
LOC: ED 20:29
PROVIDERS: Internal Medicine
DX: I12.9 Hypertensive chronic kidney disease with stage 1 through stage 4 chronic kidney disease, or unspecified chronic kidney disease (principal); N18.31 Chronic kidney disease, stage 3a; D75.89 Other specified diseases of blood and blood-forming organs; I48.91 Unspecified atrial fibrillation; E78.00 Pure hypercholesterolemia, unspecified; Z98.890 Other specified postprocedural states; Z95.5 Presence of coronary angioplasty implant and graft; Z87.891 Personal history of nicotine dependence

== ENCOUNTER 2023-12-17 13:15 | Inpatient (IN) | payer MEDICARE, MEDICAID ==
[~2023-12-17] VITALS: Ht 185.4 cm; Wt 142.4 kg
[2023-12-17 13:28] VITALS: BP 103/63
[2023-12-17] MEDS ORDERED: LORazepam 2 MG/ML VIAL IV ONE ×4 (13:40→19:05)
[2023-12-17 14:03] LABS: BASO % 0.3 % (0.0-1.0); EOS # 0.1 10*3/uL (0.0-0.4); EOS % 2.3 % (1.0-4.0); HEMATOCRIT 37.4 % (42.0-52.0); LYMPH # 0.9 10*3/uL (1.3-4.4); LYMPH % 24.1 % (27.0-41.0); MEAN CELL VOLUME 103.6 fl (80.0-94.0); MEAN CORPUSCULAR HGB CONC 31.8 g/dl (33.0-37.0); MEAN PLATELET VOLUME 11.3 fl (9.6-12.3); MONO # 0.5 10*3/uL (0.1-1.0); MONO % 13.5 % (3.0-9.0); NEUT # 2.3 10*3/uL (2.3-7.9); NEUT % 59.5 % (47.0-73.0); NUCLEATED RED BLOOD CELL 0.5 % (0.0-0.0); PLATELET COUNT AUTOMATED 62 10*3/uL (130-400); RED BLOOD COUNT 3.61 10*6/uL (4.50-5.90); RED CELL DISTRI WIDTH 16.4 % (0-14.5); WHITE BLOOD COUNT 3.9 10*3/uL (4.8-10.8)
[2023-12-17 14:24] LABS: ALKALINE PHOSPHATASE 94 U/L (46-116); BUN 39 mg/dl (9-23); CHLORIDE 97 mmol/L (98-107); POTASSIUM 3.7 mmol/L (3.4-5.1); SGPT/ALT 28 U/L (5-49)
[2023-12-17 14:24] LABS: ACT PARTIAL THROMBO TIME 34.5 SECONDS (20.0-32.1)
[2023-12-17 16:00] VITALS: BP 115/95
[2023-12-17] MEDS ORDERED: Vancomycin Hydrochloride 250 ML IV ONE (16:25)
[2023-12-17] MEDS ORDERED: Piperacillin Sodium/Tazobact 100 ML IV ONE (16:25)
[2023-12-17] MEDS ORDERED: FUROSEMIDE 40 MG/4 ML VIAL IV ONE (16:50)
[2023-12-17] MEDS ORDERED: BISACODYL 5 MG TAB PO PRN (17:15)
[2023-12-17] MEDS ORDERED: MORPHINE Sulfate 2 MG/ML SYR IV PRN (17:15)
[2023-12-17] MEDS ORDERED: ACETAMINOPHEN 325 MG TAB PO PRN (17:15)
[2023-12-17] MEDS ORDERED: Ondansetron Hydrochloride 4 MG/2 ML VIAL IV PRN (17:15)
[2023-12-17] MEDS ORDERED: SODIUM CHLORIDE 0.9% 1,000 ML IV SCH (17:20)
[2023-12-17] MEDS ORDERED: DEPAKOTE ER250 MG PO (17:36)
[2023-12-17] MEDS ORDERED: RIVASTIGMINE TAR6 M1 PO (17:37)
[2023-12-17] MEDS ORDERED: HYDROXYZINE PAM25 M1 PO (17:37)
[2023-12-17] MEDS ORDERED: NAMENDA-28 PO (17:38)
[2023-12-17] MEDS ORDERED: hydrOXYzine pamoate 25 MG CAP PO PRN (18:30)
[2023-12-17 18:36] VITALS: BP 170/112
[2023-12-17] MEDS ORDERED: Metoprolol Tartrate 5 MG/5 ML VIAL IV ONE (19:10)
[2023-12-17] MEDS ORDERED: INSULIN REGULAR IN 0.9 % NACL 100 ML IV SCH (19:30)
[2023-12-17] MEDS ORDERED: VANCOMYCIN/WATER FOR INJ (PEG) 300 ML IV SCH (20:00)
[2023-12-17 20:03] VITALS: BP 160/70
[2023-12-17 21:33] LABS: BILIRUBIN Negative (Negative); BLOOD Trace-Intact (Negative); CLARITY Turbid (Clear); COLOR Dark Yellow (Yellow); GLUCOSE Negative (Negative); KETONE Negative (Negative); LEUKO ESTERASE 3+ (Negative); NITRITE Negative (Negative); PH 5.5 (4.5-8.0); SPECIFIC GRAVITY 1.015 (1.001-1.030)
[2023-12-17] MEDS ORDERED: SACUBITRIL/VALSARTAN 24 MG-26 MG TABLET PO SCH (22:00)
[2023-12-17] MEDS ORDERED: AMMONIUM LACTATE 12% LOTION T SCH (22:00)
[2023-12-17] MEDS ORDERED: Rivastigmine Tartrate 3 MG CAP PO SCH (22:00)
[2023-12-17] MEDS ORDERED: SIMVASTATIN 20 MG TAB PO SCH (22:00)
[2023-12-17] MEDS ORDERED: DIVALPROEX ER 250 MG TAB PO SCH (22:00)
[2023-12-17] MEDS ORDERED: RIVAROXABAN 20 MG TAB PO SCH (22:00)
[2023-12-17 22:09] LABS: BACTERIA 4+; WBC 21-30 wbc/hpf (0-5)
[2023-12-18] MEDS ORDERED: Piperacillin Sodium/Tazobact 50 ML IV SCH
[2023-12-18 00:12] VITALS: BP 117/74
[2023-12-18 04:32] VITALS: BP 119/105
[2023-12-18 07:02] LABS: HEMATOCRIT 35.2 % (42.0-52.0); MEAN CELL VOLUME 102.6 fl (80.0-94.0); MEAN CORPUSCULAR HGB 33.2 pg (27.0-31.0); MEAN CORPUSCULAR HGB CONC 32.4 g/dl (33.0-37.0); MEAN PLATELET VOLUME 11.6 fl (9.6-12.3); NUCLEATED RED BLOOD CELL 0.1 10*3/uL (0.0-0.0); NUCLEATED RED BLOOD CELL 1.3 % (0.0-0.0); PLATELET COUNT AUTOMATED 70 10*3/uL (130-400); RED BLOOD COUNT 3.43 10*6/uL (4.50-5.90); RED CELL DISTRI WIDTH 16.7 % (0-14.5); WHITE BLOOD COUNT 4.8 10*3/uL (4.8-10.8)
[2023-12-18 07:11] LABS: MANUAL DIFF REFLEX YES
[2023-12-18 07:29] LABS: POLYCHROMASIA SLIGHT; TOTAL CELLS COUNTED 100 #CELLS
[2023-12-18 07:30] LABS: OVALOCYTES FEW; PLATELET SUFFICIENCY LOW (NORMAL); TARGET CELLS MODERATE
[2023-12-18 07:33] LABS: POTASSIUM 4.2 mmol/L (3.4-5.1); TOTAL PROTEIN 6.7 gm/dL (6.0-8.0)
[2023-12-18 07:48] VITALS: BP 114/84
[2023-12-18] MEDS ORDERED: Memantine Hydrochloride 10 MG TAB PO SCH (10:00)
[2023-12-18] MEDS ORDERED: METOPROLOL SUCCINATE XR 25 MG TAB PO SCH (10:00)
[2023-12-18] MEDS ORDERED: FUROSEMIDE 20 MG TAB PO SCH (10:00)
[2023-12-18] MEDS ORDERED: Montelukast Sodium 10 MG TAB PO SCH (10:00)
[2023-12-18] MEDS ORDERED: HEEL PROTECTOR DEVICE ONE (10:43)
[2023-12-18] MEDS ORDERED: FOAM BANDAGE HEEL T ONE (10:43)
[2023-12-18] MEDS ORDERED: FOAM BANDAGE 1 EACH BANDAGE T ONE (10:43)
[2023-12-18] MEDS ORDERED: Menthol/Zinc Oxide 4 GM THIN T PRN (11:40)
[2023-12-18 12:00] VITALS: BP 86/26
[2023-12-18] MEDS ORDERED: MORPHINE Sulfate 2 MG/ML SYR IV ONE (13:15)
[2023-12-18] MEDS ORDERED: LORazepam 2 MG/ML VIAL IV ONE (13:15)
[2023-12-18 16:00] VITALS: BP 76/56
[2023-12-18] MEDS ORDERED: MORPHINE Sulfate 100 MG in SODIUM CHLORIDE 0.9% 90 ML IV SCH (18:45)
[2023-12-18] MEDS ORDERED: MORPHINE Sulfate 2 MG/ML SYR IV PRN (18:45)
[2023-12-18] MEDS ORDERED: LORazepam 2 MG/ML VIAL IV PRN (18:50)
[2023-12-18] MEDS ORDERED: Menthol/Zinc Oxide 4 GM THIN T SCH (22:00)
[2023-12-18] MEDS ORDERED: NYSTATIN 15 GM BOT T SCH (22:00)
== END 2023-12-18 19:12 | disposition hospice, inpatient (51) | DRG 871 ==
LOC: ED 13:15 → EDHOLD 17:04 → 4E 17:04 → EDHOLD 17:22 → 4E 12-18 07:54
PROVIDERS: Internal Medicine; ADMIT Internal Medicine; ATTEND Internal Medicine
DX: A41.9 Sepsis, unspecified organism (principal); E43 Unspecified severe protein-calorie malnutrition; J69.0 Pneumonitis due to inhalation of food and vomit; G93.41 Metabolic encephalopathy; N17.0 Acute kidney failure with tubular necrosis; I50.22 Chronic systolic (congestive) heart failure; E87.20 Acidosis, unspecified; Z68.1 Body mass index [BMI] 19.9 or less, adult; D72.819 Decreased white blood cell count, unspecified; F03.90 Unspecified dementia, unspecified severity, without behavioral disturbance, psychotic disturbance, mood disturbance, and anxiety; Z66 Do not resuscitate; R65.20 Severe sepsis without septic shock; I48.0 Paroxysmal atrial fibrillation; I11.0 Hypertensive heart disease with heart failure; I25.10 Atherosclerotic heart disease of native coronary artery without angina pectoris; T68.XXXA Hypothermia, initial encounter; D69.6 Thrombocytopenia, unspecified; E87.8 Other disorders of electrolyte and fluid balance, not elsewhere classified; R73.9 Hyperglycemia, unspecified; R74.01 Elevation of levels of liver transaminase levels; F79 Unspecified intellectual disabilities; S31.829A Unspecified open wound of left buttock, initial encounter; S31.819A Unspecified open wound of right buttock, initial encounter; S80.01XA Contusion of right knee, initial encounter; Z79.899 Other long term (current) drug therapy; Z79.01 Long term (current) use of anticoagulants; Z79.2 Long term (current) use of antibiotics; Z87.891 Personal history of nicotine dependence; Z82.2 Family history of deafness and hearing loss; Z83.3 Family history of diabetes mellitus; X58.XXXA Exposure to other specified factors, initial encounter; Y93.89 Activity, other specified; Y92.89 Other specified places as the place of occurrence of the external cause; Y99.8 Other external cause status

== ENCOUNTER 2023-12-18 19:14 | Inpatient (IN) | payer OTHER ==
[2023-12-18 19:00] VITALS: BP 91/40
[~2023-12-18 19:14] MED LIST changes: +DEPAKOTE ER250 MG PO; +HYDROXYZINE PAM25 M1 PO; +NAMENDA-28 PO; +RIVASTIGMINE TAR6 M1 PO
[2023-12-18] MEDS ORDERED: MORPHINE Sulfate 2 MG/ML SYR IV PRN (19:30)
[2023-12-18] MEDS ORDERED: LORazepam 2 MG/ML VIAL IV PRN (19:30)
[2023-12-18] MEDS ORDERED: MORPHINE Sulfate 100 MG in SODIUM CHLORIDE 0.9% 90 ML IV SCH (19:30)
[2023-12-18] MEDS ORDERED: ATROPINE SULFATE 1% 2 ML BOTTLE SL PRN (19:35)
[2023-12-18 20:00] VITALS: BP 141/79
[2023-12-19] VITALS: BP 120/50
[2023-12-19 11:51] VITALS: BP 60/27
[2023-12-19] MEDS ORDERED: ATROPINE SULFATE 1% 2 ML BOTTLE SL PRN (11:55)
== END 2023-12-20 02:21 | DRG 871 ==
LOC: 4E 19:14
PROVIDERS: ADMIT Internal Medicine; ATTEND Internal Medicine
DX: A41.9 Sepsis, unspecified organism (principal); E43 Unspecified severe protein-calorie malnutrition; J69.0 Pneumonitis due to inhalation of food and vomit; G93.41 Metabolic encephalopathy; J96.01 Acute respiratory failure with hypoxia; N17.0 Acute kidney failure with tubular necrosis; E87.20 Acidosis, unspecified; D61.818 Other pancytopenia; J98.11 Atelectasis; Z68.1 Body mass index [BMI] 19.9 or less, adult; Z66 Do not resuscitate; R26.2 Difficulty in walking, not elsewhere classified; E87.8 Other disorders of electrolyte and fluid balance, not elsewhere classified; R73.9 Hyperglycemia, unspecified; R74.01 Elevation of levels of liver transaminase levels; Z51.5 Encounter for palliative care